=== PATIENT | male | born 1955 | race Caucasian/White ===

== ENCOUNTER 2017-02-05 08:38 | Day surgery (SDC) | payer BC ==
[~2017-02-05] VITALS: Ht 167.6 cm; Wt 74.1 kg
[~2017-02-05 08:38] MED LIST: METH20TA PO; OLAN5TAB3 PO
[2017-02-05] MEDS ORDERED: FENTANYL PF 100 MCG/2ML ONE (09:10)
[2017-02-05] MEDS ORDERED: MIDAZOLAM 1 MG/ML, 2ML ONE (09:10)
[2017-02-05] MEDS ORDERED: LACTATED RINGERS 1,000 ML IV SCH (09:21)
[2017-02-05 09:30] VITALS: BP 167/81
[2017-02-05] MEDS ORDERED: PLEASE ENTER HEIGHT AND WEIGHT MC SCH (09:30)
[2017-02-05] MEDS ORDERED: LIDOCAINE/PF 1%, 30ML ONE (09:39)
[2017-02-05] MEDS ORDERED: BACITRACIN OINT 500U/GM, 15 GM ONE (09:39)
[2017-02-05] MEDS ORDERED: EPINEPHRINE 1 MG/ML, 1ML ONE (09:40)
[2017-02-05 09:55] LABS: HEMATOCRIT 47.5 % (39.2-51.8); HEMOGLOBIN 16.5 g/dL (13.7-18.0); WHITE BLOOD COUNT 5.2 x10^3/uL (3.4-10)
[2017-02-05] MEDS ORDERED: SUCCINYLCHOLINE 20 MG/ML, 10ML ONE (10:01)
[2017-02-05] MEDS ORDERED: DEXAMETHASONE 4 MG/ML, 1ML ONE (10:01)
[2017-02-05] MEDS ORDERED: ONDANSETRON 2MG/ML, 2ML ONE (10:01)
[2017-02-05] MEDS ORDERED: ROCURONIUM 10 MG/ML ONE (10:01)
[2017-02-05] MEDS ORDERED: PROPOFOL 10 MG/ML, 20ML ONE (10:01)
[2017-02-05] MEDS ORDERED: CEFAZOLIN 1,000 MG ONE (10:01)
[2017-02-05] MEDS ORDERED: EPHEDRINE 50 MG/ML, 1ML ONE (10:01)
[2017-02-05 10:05] LABS: BLOOD UREA NITROGEN 16 mg/dL (7-18)
[2017-02-05] MEDS ORDERED: LIDOCAINE 1%, 20ML INFIL ONE (10:31)
[2017-02-05] MEDS ORDERED: EPINEPHRINE 1 MG/ML, 1ML INFIL ONE (10:32)
[2017-02-05] MEDS ORDERED: LABETALOL 5MG/ML, 20ML IV PRN (11:00)
[2017-02-05] MEDS ORDERED: ACETAMINOPHEN 325 MG TABLET PO PRN (11:00)
[2017-02-05] MEDS ORDERED: PROMETHAZINE 25 MG/ML, 1ML IV PRN (11:00)
[2017-02-05] MEDS ORDERED: HYDROmorphone 1 MG/ML, 1ML IV PRN (11:00)
[2017-02-05] MEDS ORDERED: MIDAZOLAM 1 MG/ML, 2ML IV PRN (11:00)
[2017-02-05] MEDS ORDERED: FENTANYL PF 100 MCG/2ML IV PRN (11:00)
[2017-02-05] MEDS ORDERED: hydrALAzine 20 MG/ML, 1ML IV PRN (11:00)
[2017-02-05] MEDS ORDERED: ALBUTEROL/IPRATROPIUM 2.5MG/0.5MG, 3 ML NPPB PRN (11:00)
[2017-02-05] MEDS ORDERED: MEPERIDINE/PF 25MG/0.5ML IVPush PRN (11:00)
[2017-02-05] MEDS ORDERED: OXYcodone 5 MG/5 ML ORAL.SOL UDC PO PRN (11:00)
[2017-02-05] MEDS ORDERED: DIAZEPAM 5 MG/ML, 2ML IVPush PRN (11:00)
[2017-02-05] MEDS ORDERED: ONDANSETRON 2MG/ML, 2ML IVPush PRN (11:00)
[2017-02-05] MEDS ORDERED: OXYcodone 5 MG/5 ML ORAL.SOL UDC ONE (11:21)
== END 2017-02-05 13:05 ==
LOC: OUT 08:38
PROVIDERS: ATTEND Otolaryngology Facial Plastic Surgery
DX: D11.9 Benign neoplasm of major salivary gland, unspecified (principal); K21.9 Gastro-esophageal reflux disease without esophagitis
CPT/HCPCS: 21556; 36415; 71010; 80048; 85025; 87070; 87075; 87205; 88307; 93005; J0171; J0330; J0690; J1100; J2250; J2405; J2704; J3010; J3490; J7120